=== PATIENT | male | born 1935 | race Caucasian/White ===

== ENCOUNTER 2021-04-28 13:04 | Emergency (ER) | payer MEDICARE ==
[2021-04-28 13:48] VITALS: BP 168/87; PULSE 64
--- NOTE | 2021-04-28 15:15 | EDM.PDOC ---
ED HPI GENERAL MEDICAL PROBLEM - General Chief Complaint: Lower Extremity Injury/Pain Stated Complaint: RIGHT KNEE WOBBLEY Time Seen by Provider: 04/28/21 15:08 Source of Information: Reports: Patient, Family, RN Notes Reviewed History Limitations: Reports: No Limitations - History of Present Illness INITIAL COMMENTS - FREE TEXT/NARRATIVE: 86-year-old gentleman presents emergency department today with complaint of knee instability, he did fall today he has been feeling a little weak however after the fall he felt his leg was unstable and he was unable to walk. He he has had a knee replacement several years ago - Related Data Allergies Allergy/AdvReac Type Severity Reaction Status Date / Time lisinopril Allergy Unknown Cough Verified 04/28/21 13:48 Home Meds: Home Meds Aspirin [Halfprin] 81 mg PO DAILY 06/27/13 [History] Clopidogrel [Plavix] 75 mg PO DAILY 06/27/13 [History] Fenofibrate 160 mg PO DAILY 06/27/13 [History] Losartan [Cozaar] 25 mg PO DAILY 06/27/13 [History] Metoprolol Succinate 25 mg PO DAILY 06/27/13 [History] Rosuvastatin [Crestor] 40 mg PO BEDTIME 06/27/13 [History] metFORMIN [Glucophage] 500 mg PO BEDTIME 06/27/13 [History] Past Medical History HEENT History: Reports: Cataract, Hard of Hearing, Impaired Vision Cardiovascular History: Reports: CAD, High Cholesterol, Hypertension, [place] Musculoskeletal History: Reports: Other (See Below) Other Musculoskeletal History: rotator cuff tear right Endocrine/Metabolic History: Reports: Diabetes, Type II Oncologic (Cancer) History: Reports: Prostate - Infectious Disease History Infectious Disease History: Reports: Chicken Pox, Measles - Past Surgical History HEENT Surgical History: Reports: Cataract Surgery Cardiovascular Surgical History: Reports: Coronary Artery Stent Musculoskeletal Surgical History: Reports: Knee Replacement Social & Family History - Tobacco Use Tobacco Use Status *Q: Never Tobacco User - Caffeine Use Caffeine Use: Reports: None - Recreational Drug Use Recreational Drug Use: No Review of Systems - Review of Systems Review Of Systems: See Below Musculoskeletal: Reports: Joint Pain (knee right) ED EXAM, GENERAL - Physical Exam Exam: See Below Free Text/Narrative:: Examination of the right knee I do not appreciate any edema there is no erythema he does have a surgical scar across anterior portion midline there is no pain to palpation no difficulty moving the patella he has good strength in this leg power is 5 x 5 however the stability of the artificial joint has weakened some with side to side movement Exam Limited By: No Limitations General Appearance: Alert, WD/WN, No Apparent Distress Course - Vital Signs Last Recorded V/S: Last Vital Signs Temp 97.2 F 04/28/21 13:56 Pulse 64 04/28/21 13:56 Resp 18 04/28/21 13:56 BP 168/87 H 04/28/21 13:56 Pulse Ox 95 04/28/21 13:56 - Orders/Labs/Meds Orders: Active Orders 24 hr Category Date Time Status DME for Discharge [COMM] Urgent Oth 04/28/21 16:09 Ordered Departure - Departure Time of Disposition: 16:13 Disposition: Home, Self-Care 01 Condition: Fair Clinical Impression: Knee instability Qualifiers: Laterality: right Qualified Code(s): M25.361 - Other instability, right knee - Discharge Information Instructions: How to Use a Knee Immobilizer, [id number] Referrals: Micheal Saldana NP [Primary Care Provider] - Forms: ED Department Discharge Additional Instructions: Please follow-up with orthopedic surgery upon return home call return to the emergency department worsening symptoms Sepsis Event Note (ED) - Evaluation Sepsis Screening Result: No Definite Risk - Focused Exam Vital Signs: Vital Signs Temp Pulse Resp BP Pulse Ox 04/28/21 13:56 97.2 F 64 18 168/87 H 95 04/28/21 13:46 97.2 F 64 168/87 H 95 - My Orders Last 24 Hours: My Active Orders 04/28/21 16:09 DME for Discharge [COMM] Urgent - Assessment/Plan Last 24 Hours: My Active Orders 04/28/21 16:09 DME for Discharge [COMM] Urgent Plan: Assessment Acuity = acute Site and laterality = right knee artificial knee instability Etiology = suspicious for tendon tear Manifestations = none Location of injury = Home Lab values = x-ray reveals no fracture Plan Discussed case with Dr. Nino orthopedic surgeon on-call at 1610 recommended evaluation in orthopedics clinic for possible revision however this gentleman is from [place] and they would like to return home therefore he is placed in a knee immobilizer and will return back to [place] for evaluation with his orthopedic surgeon This note was dictated using [employer] voice recognition software please call with any questions on syntax or grammar.
--- NOTE | 2021-04-28 15:50 | CR ---
Knee 3V Rt CLINICAL HISTORY: Total knee arthroplasty, instability FINDINGS: Patient is a 3 component total knee arthroplasty. Components appear well seated. No fracture seen. Impression: Total knee arthroplasty appears intact
== END 2021-04-28 17:14 | disposition home or self-care (01) ==
LOC: JP.ED 13:04
DX: M25.361 Other instability, right knee (principal); I25.10 Atherosclerotic heart disease of native coronary artery without angina pectoris; E78.00 Pure hypercholesterolemia, unspecified; I10 Essential (primary) hypertension; I25.2 Old myocardial infarction; E11.9 Type 2 diabetes mellitus without complications; Z79.84 Long term (current) use of oral hypoglycemic drugs; Z79.899 Other long term (current) drug therapy; Z79.82 Long term (current) use of aspirin; Z79.02 Long term (current) use of antithrombotics/antiplatelets; Z88.8 Allergy status to other drugs, medicaments and biological substances
CPT/HCPCS: 73562-26-RT; 73562-RT; 99283-25